=== PATIENT | male | born 1990 | race American Indian/Alaskan Native ===

== ENCOUNTER 2017-01-17 15:52 | Emergency (ER) | payer OTHER ==
[2017-01-17 15:52] VITALS: BMI 24.2
[2017-01-17 16:03] VITALS: TEMP 98.2
[2017-01-17] MEDS ORDERED: Albuterol-Ipratrop 3 mg / 0.5 (3 ml) UD IH STA ×3 (16:04→18:14)
--- NOTE | 2017-01-17 16:04 | ED PDOC ---
Arrival/HPI - General Chief Complaint: Respiratory Distress Time Seen by Provider: 01/17/17 15:59 Historian: Patient - History of Present Illness Narrative History of Present Illness (Text): 01/17/17 15:59 26yr old male with hx of asthma presents today with a 2-3 day history of worsening SOB and wheezing. pt states he doesnt have an inhaler anymore and he has been feeling like his asthma is worsening. pt denies cp. pt c/o dry cough. no fever/chills. no abdominal pain. no other complaints. Past Medical History - Provider Review Nursing Documentation Reviewed: Yes - Travel History Have you recently traveled outside [place] w/in the past 3 mons?: No - Tetanus Immunization Tetanus Immunization: Unknown - Pulmonary Hx Asthma: Yes - Musculoskeletal/Rheumatological Hx Falls: No - Psychiatric Hx Substance Use: Yes (marijuana) - Surgical History Hx Inguinal Hernia Repair: Yes - Suicidal Assessment Feels Threatened In Home Enviroment: No Family/Social History - Physician Review Nursing Documentation Reviewed: Yes Family/Social History: Unknown Family HX Smoking Status: Heavy Smoker > 10 Cigarettes Daily Hx Alcohol Use: No Hx Substance Use: Yes (marijuana) Hx Substance Use Treatment: No Allergies/Home Meds Allergies/Adverse Reactions: Allergies BANANAS Allergy (Uncoded 01/17/17 15:59) SWELLING FRUITS Allergy (Uncoded 01/17/17 15:59) SWELLING Review of Systems - Review of Systems Constitutional: absent: Fatigue, Fevers ENT: Sinus Congestion. absent: Sore Throat Respiratory: SOB, Cough, Wheezing Cardiovascular: absent: Chest Pain, Palpitations Gastrointestinal: absent: Abdominal Pain, Diarrhea, Nausea, Vomiting Genitourinary Male: absent: Dysuria, Frequency, Hematuria Musculoskeletal: absent: Arthralgias Skin: absent: Rash, Pruritis Neurological: absent: Headache, Dizziness Psychiatric: absent: Anxiety, Depression, Suicidal Ideation Physical Exam Vital Signs Reviewed: Yes Vital Signs Temp Pulse Resp BP Pulse Ox 01/17/17 17:59 68 18 128/79 97 01/17/17 16:02 98.2 F 73 17 130/86 96 01/17/17 16:00 18 99 Temperature: Afebrile Blood Pressure: Normal Pulse: Regular Respiratory Rate: Normal Appearance: Positive for: Well-Appearing, Non-Toxic, Comfortable Pain Distress: None Mental Status: Positive for: Alert and Oriented X 3 - Systems Exam Head: Present: Atraumatic Mouth: Present: Moist Mucous Membranes Neck: Present: Normal Range of Motion Respiratory/Chest: Present: Good Air Exchange, Wheezes (diffuse bilateral wheezing). No: Clear to Auscultation, Respiratory Distress, Accessory Muscle Use, Decreased Breath Sounds, Rales, Retracting, Rhonchi, Tachypneic, Tender to Palpation Cardiovascular: Present: Regular Rate and Rhythm Abdomen: No: Tenderness Neurological: Present: GCS=15, Speech Normal Skin: Present: Warm, Dry, Normal Color. No: Rashes Psychiatric: Present: Alert, Oriented x 3 Medical Decision Making ED Course and Treatment: 01/17/17 16:06 26-year-old male with a history of asthma presents today with a 2 to three-day history of worsening shortness of breath/asthma exacerbation Patient nontoxic well-appearing no distress. Vital signs are stable. Diffuse wheezing noted bilaterally. No respiratory distress. DuoNeb given x 3 prednisone 60mg po zithromax po cxr; wnl 01/17/17 18:20 pt reassessment; lungs cta bilaterally. vitals stable. speaking in full sentences. discussed all results in depth with patient. advised f/u with pmd within the next 2 days. advised immediate return if symptoms worsen,persist or if new symptoms develop. Patient verbalizes understanding of discharge instructions and need for immediate followup. impression; asthma exacerbation, cough prednisone daily x 4 days zithromax; daily x 4 days albuterol; 2 puffs every 4-6 hours as needed for cough Use albuterol nebulizer 3 times daily as needed increase fluids follow up with the primary care physician within the next 2 days return immediately if symptoms worsen, persist or if new symptoms develop. - RAD Interpretation Radiology Orders: 01/17/17 16:51 CHEST TWO VIEWS (PA/LAT) [RAD] Stat - Medication Orders Current Medication Orders: Albuterol/Ipratropium (Duoneb 3 Mg/0.5 Mg (3 Ml) Ud) 3 ml IH STAT STA Stop: 01/17/17 18:15 Azithromycin (Zithromax) 500 mg PO STAT STA PRN Reason: Protocol Stop: 01/17/17 18:15 Prednisone (Prednisone Tab) 60 mg PO STAT ONE Stop: 01/17/17 18:15 Discontinued Medications Albuterol/Ipratropium (Duoneb 3 Mg/0.5 Mg (3 Ml) Ud) 3 ml IH STAT STA Stop: 01/17/17 16:05 Last Admin: 01/17/17 16:39 Dose: 3 ml Albuterol/Ipratropium (Duoneb 3 Mg/0.5 Mg (3 Ml) Ud) 3 ml IH STAT STA Stop: 01/17/17 16:52 Last Admin: 01/17/17 17:24 Dose: 3 ml Disposition/Present on Arrival - Present on Arrival Any Indicators Present on Arrival: No History of DVT/PE: No History of Uncontrolled Diabetes: No Urinary Catheter: No History of Decub. Ulcer: No - Disposition Have Diagnosis and Disposition been Completed?: Yes Diagnosis: Asthma, Cough Disposition: HOME/ ROUTINE Disposition Time: 18:26 Patient Plan: Discharge Condition: GOOD Discharge Instructions (ExitCare): Asthma (ED) Additional Instructions: prednisone daily x 4 days zithromax; daily x 4 days albuterol; 2 puffs every 4-6 hours as needed for cough Use albuterol nebulizer 3 times daily as needed increase fluids follow up with the primary care physician within the next 2 days return immediately if symptoms worsen, persist or if new symptoms develop. Prescriptions: Albuterol HFA [Ventolin HFA 90 mcg/actuation (8 g)] 2 puff IH [id number] PRN #1 inhaler PRN Reason: Cough Albuterol 0.083% [Albuterol 0.083% Inhal Socorro (2.5 mg/3 ml) UD] 1 vial IH TID PRN #1 packet PRN Reason: Cough Azithromycin [Zithromax] 250 mg PO DAILY #4 tab Nebulizer [Compact Compressor Nebulizer] 1 dev XX PRN PRN #1 dev PRN Reason: Cough predniSONE [predniSONE Tab] 3 tab PO DAILY #12 tab
[2017-01-17 18:02] VITALS: BP 128/79; PULSE 68; RESP 18; O2SAT 97
--- NOTE | 2017-01-18 09:34 | RAD ---
HISTORY: cough/wheezing COMPARISON: No prior. TECHNIQUE: Chest PA and lateral FINDINGS: LUNGS: No active pulmonary disease. PLEURA: No significant pleural effusion identified. No pneumothorax apparent. CARDIOVASCULAR: Normal. OSSEOUS STRUCTURES: No significant abnormalities. VISUALIZED UPPER ABDOMEN: Normal. OTHER FINDINGS: None. IMPRESSION: No active disease.
== END 2017-01-17 18:45 | disposition home or self-care (01) ==
LOC: ED 15:52
DX: J45.909 Unspecified asthma, uncomplicated (principal); R05 Cough; F17.210 Nicotine dependence, cigarettes, uncomplicated